=== PATIENT | male | born 1985 | race Two or more races ===

== ENCOUNTER 2017-09-27 09:48 | Emergency (ER) | payer BC ==
[~2017-09-27] VITALS: Ht 157.5 cm; Wt 81.6 kg
[2017-09-27] MEDS ORDERED: Fluorescein Strips RIGHT EYE ONE (10:15)
--- NOTE | 2017-09-27 10:17 | Emergency Room Report ---
History of Present Illness General Chief Complaint: Eye Problems Source: Patient Present Illness HPI Patient presents with complaints of right-sided eye irritation Patient reports that he had his contact lens in a solution called clear care plus this is a solution for cleansing contact lenses however he reports that he had not given the lens appropriate time to neutralize and after wearing his contact immediately after felt discomfort to the eye Took the contact lens off and began irrigating the region Patient feel significantly improved however presents for further evaluation Denies any visual change at this time denies any headache discomfort as 2/10 irritation feeling to the right eye Allergies: Coded Allergies: No Known Allergies (Unverified , 09/27/17) Patient History Past Medical History: see triage record Pertinent Family History: none Reviewed Nursing Documentation: PMH: Agreed, PSxH: Agreed Nursing Documentation-PMH Past Medical History: No Stated History Review of Systems All Other Systems: negative except mentioned in HPI Physical Exam Vital Signs Date Time Temp Pulse Resp B/P (MAP) Pulse Ox O2 Delivery O2 Flow Rate FiO2 09/27/17 09:59 98.8 87 16 172/105 96 Room Air Sp02 EP Interpretation: reviewed, normal General Appearance: well appearing, no apparent distress Head: normocephalic, atraumatic Eyes: right eye other - Mild conjunctival erythema, fluorescein testing does not reveal any uptake, pupils react appropriately ENT: hearing grossly normal, normal pharynx Neck: full range of motion Respiratory: lungs clear Cardiovascular #1: regular rate, rhythm Gastrointestinal: normal bowel sounds, non tender Musculoskeletal: normal inspection Neurologic: alert, oriented x3 Skin: no rash Lymphatic: no adenopathy Medical Decision Making Diagnostic Impression: Primary Impression: Chemical conjunctivitis ER Course Given the patient's presentation Poison control was contacted at [phone] There recommend continued washout and floor seen imaging Flows imaging does not reveal any uptake or abnormality Patient significantly clinically feels better Will abstain from wearing contacts and follow closely Last Vital Signs Date Time Temp Pulse Resp B/P (MAP) Pulse Ox O2 Delivery O2 Flow Rate FiO2 09/27/17 09:59 98.8 87 16 172/105 96 Room Air Status: improved Disposition: HOME, SELF-CARE Condition: Improved Scripts Ibuprofen* (MOTRIN*) 600 Mg Tablet 600 MG ORAL Q8H Y for For Pain, #20 TAB 0 Refills Prov: ANUJ GALRAND D.Nery 2/3/18 Gentamicin Sulfate* (GENTAMICIN SULFATE*) 3.5 Gm Oint...g. 3.5 GM OP BID for 7 Days, GM Prov: ANUJ GARLAND D.O. 09/27/17 Additional Instructions: Patient is provided with the discharge instructions notified to follow up with primary doctor in the next 2-3 days otherwise return to the er with any worsening symptoms. Please note that this report is being documented using DRAGON technology. This can lead to erroneous entry secondary to incorrect interpretation by the dictating instrument. ANUJ GARLAND D.O. Sep 27, 2017 10:17
[2017-09-27] MEDS ORDERED: GENTAMICIN SUL3.5 GM OP (10:25)
[2017-09-27] MEDS ORDERED: IBUPROFEN600 MG ORAL (10:25)
[2017-09-27 10:45] VITALS: BP_SYST 145; BP_SYST 172; BP_DIAS 105; BP_DIAS 89
[2017-09-27] MEDS ORDERED: Tetrahydrozoline 0.05% Opth 15ml BOTH EYES SCH (13:00)
[2017-09-27] MEDS ORDERED: Tetrahydrozoline 0.05% Opth 15ml BOTH EYES ONE (13:00)
== END 2017-09-27 10:45 | disposition home or self-care (01) ==
LOC: EMR 10:10
DX: H10.211 Acute toxic conjunctivitis, right eye (principal)
CPT/HCPCS: 99283